=== PATIENT | male | born 1940 | race Caucasian/White ===

== ENCOUNTER 2017-09-28 17:52 | Emergency (ER) | payer OTHER ==
[~2017-09-28] VITALS: Ht 175.3 cm; Wt 95.3 kg
[~2017-09-28 17:52] MED LIST: ACIDOPHILUS1 EAC4 PO; ALUM-MAG HYDRO360 ML PO; AMITRIPTYLINE H25 M2 PO; ANASPAZ0.125 MG SL; APAP500 PO; ASA5UEC PO; ASPIRIN EC325 M1 PO; ATIVAN0.5 MG PO; B COMPLEX # 11 EACH PO; B-COMPLEX-VITA1 EACH PO; BENTYL 10 MG CA10 M1 PO; BENTYL 20 MG TA20 M1 PO; BP MEDS; CALCIUM 600 +1 EAC1 PO; CARAFATE 1 GM TA1 G1 PO; CIPRO500 MG PO; CLARITIN10 MG PO; COLACE100 MG PO; DILAUDID 2 MG TA2 MG PO; FISH OIL 1,001000 M2 PO; FISH OIL 1,2001 EAC4 PO; FLAGYL500 MG PO; GABAPENTIN 100100 MG PO; HYDROCODON-ACE1 EAC8 PO; HYDROCODON-ACE1 EACH PO; IRON PO; IRON325 PO; K-DUR 20 MEQ T20 MEQ PO; KEPPRA 500 MG500 M1 PO; KEPPRA750 MG PO; KLOR-CON 1010 MEQ PO; LAMICTAL100 MG PO; LEVOTHYROXIN0.025 MG PO; LEVOTHYROXINE0.05 MG PO; LIDODERM 5%1 PATC1 TRANSDERM; LISINOPRIL10 MG PO; LISINOPRIL5 MG PO; LOMOTIL TABLET1 EACH PO; LORAZEPAM 22 MG/1 ML IM; MAGNES; MAGNESIUM250 M1 PO; MAGOX 400400 MG PO; MEDROLDOSEPACK PO; MELATONIN3 MG PO; METOCLOPRAMIDE10 MG PO; MIDODRINE HCL 55 M1 PO; MILK OF MA2400 MG/10 PO; MIRALAX17 GM PO; MORPHINE SULFAT15 M3 PO; MS CONTIN15 MG PO; MUCINEX DM ER1 EACH PO; NEURONTIN 300300 M1 PO; NEXIUM40 MG PO; NORCO 5-325 TA1 EAC1 PO; NORFLEX100 MG PO; NORTRIPTYLINE H50 M3 PO; OMEGA-31000 M1 PO; ONDANSETRON HCL4 M2 PO; PAXIL10 MG PO; POTASSIUM20 PO; PREDNISONE 10 M10 M1 PO; PREDNISONE 10 M10 MG PO; PRILOSEC40 MG PO; PROAIR HFA8.5 GM INH; PROSCAR 5MG TABL5 MG PO; PROZAC20 MG PO; RENO; RENO CAPS SOFTGE1 MG PO; SIMVASTATIN40 MG PO; SKELAXIN 800 M800 M1 PO; SYNTHROID100 MCG PO; TAMIFLU75 MG PO; TESSALON PERLE100 MG PO; TRANSDERM-SCO1 PATC1 TRANSDERM; TRAZODONE HCL50 MG PO; TUMS PO; TYLENOL325 MG PO; TYLENOL325 MG RECTAL; UNICOMPLEX M TA1 TA1 PO; VALIUM5 MG PO; VITAMIN B-1100 M1 PO; VITAMIN C1000 M1 PO; VITAMIN D1000 UNI1 PO; VITAMIN D2000 UNIT PO; VITAMINC500 PO; XIFAXAN550 M1 PO; XIFAXAN550 MG PO; ZINC CHELATE50 MG PO; ZINC SULFATE 2220 M1 PO; ZINC50 M1 PO; ZOFRAN ODT4 MG PO; [UNRECOGNIZED DRUG - OTHER] PO
[2017-09-28 19:08] LABS: ABSOLUTE EOSINOPHILS 0.1 thou/uL (0.0-0.7); ABSOLUTE LYMPHOCYTES 2.4 thou/uL (0.8-5.3); ABSOLUTE MONOCYTES 0.5 thou/uL (0.0-1.2); ABSOLUTE NEUTROPHILS 2.7 thou/uL (1.6-8.1); BASOPHILS 0.3 %; EOSINOPHILS 1.7 %; HEMATOCRIT 43.7 % (42.0-52.0); LYMPHOCYTES 41.7 %; MCH 31.5 pg (26.0-34.0); MCHC 34.4 g/dL (28.0-37.0); MCV 91.6 fL (80.0-100.0); MONOCYTES 8.3 %; MPV 8.3 fl. (7.2-11.1); NUCLEATED RBCS 0 /100WBC; PLATELET COUNT* 183 thou/uL (150-400); RBC 4.78 mil/uL (4.50-6.00); WBC 5.7 thou/uL (4.0-11.0)
[2017-09-28 19:17] LABS: ANION GAP 10 mmol/L (7-16); BUN 12 mg/dL (7-18); CALCIUM 8.6 mg/dL (8.5-10.1); CHLORIDE 106 mmol/L (98-107); CO2 27 mmol/L (21-32); CREATININE 1.1 mg/dL (0.6-1.3); GLUCOSE 113 mg/dL (70-99); POTASSIUM 3.8 mmol/L (3.5-5.1); SODIUM 143 mmol/L (136-145)
[2017-09-28 19:24] LABS: ALBUMIN 3.6 g/dL (3.4-5.0); ALKALINE PHOSPHATASE 86 U/L (46-116); LIPASE 69 U/L (73-393); SGOT 24 U/L (15-37); SGPT 32 U/L (30-65); TOTAL BILIRUBIN 0.5 mg/dL (<0.1-1.0); TOTAL PROTEIN 7.8 g/dL (6.4-8.2); TROPONIN-I LEVEL <0.06 ng/mL (<0.06)
[2017-09-28 19:30] LABS: URINE BILIRUBIN NEGATIVE (Negative); URINE BLOOD TRACE (Negative); URINE CLARITY CLEAR; URINE COLOR YELLOW; URINE GLUCOSE-RANDOM NEGATIVE (Negative); URINE KETONES NEGATIVE (Negative); URINE LEUKOCYTES-REFLEX NEGATIVE (Negative); URINE NITRITE-REFLEX NEGATIVE (Negative); URINE PROTEIN NEGATIVE (Negative); URINE SPECIFIC GRAVITY 1.025 (1.005-1.030); URINE UROBILINOGEN 0.2 E.U./dl (0.2-1.0)
[2017-09-28 20:53] VITALS: BP 172/78
== END 2017-09-28 20:55 | disposition home or self-care (01) ==
LOC: M.ERS 17:52
PROVIDERS: Physician Assistant
DX: M25.551 Pain in right hip (principal); R10.31 Right lower quadrant pain; Z85.118 Personal history of other malignant neoplasm of bronchus and lung; Z88.5 Allergy status to narcotic agent; Z88.1 Allergy status to other antibiotic agents; Z88.2 Allergy status to sulfonamides; Z91.040 Latex allergy status; Z88.0 Allergy status to penicillin; Z88.8 Allergy status to other drugs, medicaments and biological substances; Z91.018 Allergy to other foods

== ENCOUNTER → 2017-10-10 | Outpatient (CLI) | payer OTHER ==
[~2017-10-10] MED LIST changes: +CENTRUM SILVER1 EAC2 PO; +ENOXAPARIN100 MG/11 SUBQ; +FLORASTOR250 MG PO; +LIDOCAINE1 EACH TRANSDERM; +PHENERGAN 25 MG25 M1 PO; +PROTONIX 20 MG20 M1 PO; +TRANSDERM-SCOP1 EACH TRANSDERM; +ZOFRAN ODT4 MG DISSOLVE
== END ==
LOC: M.MRI 15:39
DX: M16.11 Unilateral primary osteoarthritis, right hip (principal); M70.61 Trochanteric bursitis, right hip; Y93.89 Activity, other specified

== ENCOUNTER 2017-10-14 05:47 | Emergency (ER) | payer OTHER ==
[~2017-10-14] VITALS: Ht 175.3 cm; Wt 95.3 kg
[~2017-10-14 05:47] MED LIST changes: -CENTRUM SILVER1 EAC2 PO; -ENOXAPARIN100 MG/11 SUBQ; -FLORASTOR250 MG PO; -LIDOCAINE1 EACH TRANSDERM; -PHENERGAN 25 MG25 M1 PO; -PROTONIX 20 MG20 M1 PO; -TRANSDERM-SCOP1 EACH TRANSDERM; -ZOFRAN ODT4 MG DISSOLVE
[2017-10-14] MEDS ORDERED: CENTRUM SILVER1 EAC2 PO (06:03)
[2017-10-14] MEDS ORDERED: MAGOX 400400 MG PO (06:03)
[2017-10-14] MEDS ORDERED: PROTONIX 20 MG20 M1 PO (06:04)
[2017-10-14] MEDS ORDERED: LIDOCAINE1 EACH TRANSDERM (06:06)
[2017-10-14 06:11] LABS: ABSOLUTE EOSINOPHILS 0.1 thou/uL (0.0-0.7); ABSOLUTE LYMPHOCYTES 2.4 thou/uL (0.8-5.3); ABSOLUTE MONOCYTES 0.4 thou/uL (0.0-1.2); ABSOLUTE NEUTROPHILS 3.7 thou/uL (1.6-8.1); BASOPHILS 0.6 %; HEMATOCRIT 43.3 % (42.0-52.0); HEMOGLOBIN 14.9 gm/dL (14.0-18.0); LYMPHOCYTES 36.2 %; MCH 31.4 pg (26.0-34.0); MCHC 34.3 g/dL (28.0-37.0); MCV 91.5 fL (80.0-100.0); MONOCYTES 6.4 %; MPV 7.8 fl. (7.2-11.1); NUCLEATED RBCS 0 /100WBC; PLATELET COUNT* 169 thou/uL (150-400); POLYS 55.8 %; RBC 4.73 mil/uL (4.50-6.00); RDW-CV 13.8 % (10.5-14.5); WBC 6.6 thou/uL (4.0-11.0)
[2017-10-14 06:29] LABS: ANION GAP 8 mmol/L (7-16); BUN 13 mg/dL (7-18); CHLORIDE 107 mmol/L (98-107); CO2 30 mmol/L (21-32); CREATININE 1.1 mg/dL (0.6-1.3); GLUCOSE 145 mg/dL (70-99); POTASSIUM 3.7 mmol/L (3.5-5.1); SODIUM 145 mmol/L (136-145)
[2017-10-14 06:39] LABS: ALBUMIN 3.4 g/dL (3.4-5.0); ALKALINE PHOSPHATASE 77 U/L (46-116); LIPASE 89 U/L (73-393); MAGNESIUM 1.9 mg/dL (1.8-2.4); NT-PRO BRAIN NAT PEPTIDE 77 pg/mL (<300); SGOT 18 U/L (15-37); SGPT 23 U/L (30-65); TOTAL BILIRUBIN 0.6 mg/dL (<0.1-1.0); TOTAL PROTEIN 7.4 g/dL (6.4-8.2); TROPONIN-I LEVEL <0.06 ng/mL (<0.06)
[2017-10-14 09:23] VITALS: BP 126/76
--- NOTE | 2017-10-14 14:52 | EKG ---
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
== END 2017-10-14 09:24 | disposition home or self-care (01) ==
LOC: M.ERS 05:47
PROVIDERS: Emergency Medicine Emergency Medical Services
DX: R07.9 Chest pain, unspecified (principal); E11.9 Type 2 diabetes mellitus without complications; Z88.2 Allergy status to sulfonamides; Z88.1 Allergy status to other antibiotic agents; Z88.5 Allergy status to narcotic agent; Z88.8 Allergy status to other drugs, medicaments and biological substances

== ENCOUNTER 2018-01-14 08:48 | Inpatient (IN) | payer OTHER ==
[~2018-01-14] VITALS: Ht 172.7 cm; Wt 91.2 kg
[~2018-01-14 08:48] MED LIST changes: +CENTRUM SILVER1 EAC2 PO; +LIDOCAINE1 EACH TRANSDERM; +PROTONIX 20 MG20 M1 PO
[2018-01-14 08:57] VITALS: BP 137/68
[2018-01-14] MEDS ORDERED: ZOFRAN ODT4 MG DISSOLVE (09:11)
[2018-01-14] MEDS ORDERED: ENOXAPARIN100 MG/11 SUBQ (09:11)
[2018-01-14 09:15] LABS: ABSOLUTE LYMPHOCYTES 1.9 thou/uL (0.8-5.3); ABSOLUTE MONOCYTES 0.5 thou/uL (0.0-1.2); ABSOLUTE NEUTROPHILS 4.5 thou/uL (1.6-8.1); BASOPHILS 0.6 %; HEMATOCRIT 41.4 % (42.0-52.0); HEMOGLOBIN 14.2 gm/dL (14.0-18.0); LYMPHOCYTES 27.6 %; MCH 31.5 pg (26.0-34.0); MCHC 34.2 g/dL (28.0-37.0); MONOCYTES 6.7 %; MPV 8.1 fl. (7.2-11.1); NUCLEATED RBCS 0 /100WBC; PLATELET COUNT* 173 thou/uL (150-400); POLYS 65.1 %; RDW-CV 13.9 % (10.5-14.5); WBC 6.9 thou/uL (4.0-11.0)
[2018-01-14 09:25] LABS: ANION GAP 11 mmol/L (7-16); BUN 16 mg/dL (7-18); CHLORIDE 105 mmol/L (98-107); CO2 25 mmol/L (21-32); CREATININE 1.2 mg/dL (0.6-1.3); GLUCOSE 152 mg/dL (70-99); POTASSIUM 3.4 mmol/L (3.5-5.1); SODIUM 141 mmol/L (136-145)
[2018-01-14 09:27] LABS: INR 1.1; PROTIME 10.7 Seconds (9.20-11.50)
[2018-01-14 09:32] LABS: ALBUMIN 3.6 g/dL (3.4-5.0); ALKALINE PHOSPHATASE 81 U/L (46-116); LIPASE 61 U/L (73-393); SGOT 19 U/L (15-37); SGPT 28 U/L (30-65); TOTAL BILIRUBIN 0.6 mg/dL (<0.1-1.0); TOTAL PROTEIN 7.8 g/dL (6.4-8.2); TROPONIN-I LEVEL <0.06 ng/mL (<0.06)
[2018-01-14 11:07] VITALS: BP 124/70
[2018-01-14 13:00] VITALS: BP 148/85
--- NOTE | 2018-01-14 13:00 | NUR ---
ER ADMIT TO ROOM 314 VIA CART. ADMISSION ASSESSMENT COMPLETE, DEFER TO COMPUTER CHARTING. PATIENT REPORTING HAS BEEN HAVING NAUSEA AND LOOSE STOOLS AT HOME FOR LAST COUPLE OF DAYS UNABLE TO TAKE HOME MEDICATIONS. ALERT ORIENTED, BUT APPEARS TO BE FORGETFUL, SLIGHT CONFUSED AT TIMES. ORIENTED TO ROOM/CALL LIGHT AND PLAN OF CARE, VERBALIZED UNDERSTANDING. CALL LIGHT WITHIN REACH, WILL MONITOR.
[2018-01-14 15:24] VITALS: BP 127/72
--- NOTE | 2018-01-14 16:53 | EKG ---
[place] [address] ELECTROCARDIOGRAM REPORT Name: RIMMA WOLFE Room: [address] IN [facility]#: [id number] Admission: 01/14/18 Attend Phys: Gopi Mark MD Discharge: Date of : 44 Report #: [id number] THIS REPORT FOR: //name// 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[place] : 1940 Requested By: Joe Isaac Order Number: [id number] MD: Melvin Santizo Measurements Intervals [place] Rate: 70 P: 49 [place]: 195 QRS: 55 QRSD: 110 T: 72 QT: 512 QTc: 553 Interpretive Statements Sinus rhythm Nonspecific T-wave flattening Compared to ECG 10/14/2017 05:54:11 No significant changes noted Electronically Signed On 01-14-2018 16:53:09 CDT by Melvin Santizo [email or web address] <ELECTRONICALLY SIGNED> By: Melvin Santizo MD, [facility] 01/14/18 1653 4 4 Melvin Santizo MD, [facility] /EPI
--- NOTE | 2018-01-14 17:47 | NUR ---
PATIENT RESTING IN BED WITH HOB ELEVATED, IV INFUSING. NO COMPLAINTS OF NAUSEA OR DISCOMFORT AT THIS TIME. GIVEN PO ANTI NAUSEA MED EARLIER, TOLERATING CLEAR LIQUID DIET. PATIENT HAD 1 LOOSE STOOL AT ADMISSION NO FURTHER STOOLS AT THIS TIME. CALL LIGHT WITHIN REACH, WILL CONTINUE WITH PLAN OF CARE.
[2018-01-15 01:04] VITALS: BP 114/58
[2018-01-15 04:44] LABS: HEMATOCRIT 39.2 % (42.0-52.0); HEMOGLOBIN 13.3 gm/dL (14.0-18.0); MCH 31.6 pg (26.0-34.0); MPV 8.8 fl. (7.2-11.1); RBC 4.21 mil/uL (4.50-6.00); WBC 5.9 thou/uL (4.0-11.0)
[2018-01-15 04:48] LABS: CALCIUM 8.6 mg/dL (8.5-10.1); MAGNESIUM 2.2 mg/dL (1.8-2.4); POTASSIUM 3.8 mmol/L (3.5-5.1)
--- NOTE | 2018-01-15 06:27 | NUR ---
PT SLEPT ON AND OFF OVERNIGHT. USING URINAL TO VOID. UP TO BR WITH SBA AND WALKER TO BR AND HAD SMALL LOOSE BROWN AND YELLOW BM-SPECIMEN SENT TO LAB. PO NAUSEA MED GIVEN FOR CO SLIGHT NAUSEA WITHOUT EMESIS, GOOD RESULT. TOLERATING GOOD AMOUNTS OF CLEAR LIQUIDS WITHOUT EMESIS. RAC IVF INFUSING PER PUMP, SECOND BAG OF D5NS INFUSING TO BE FOLLOWED BY NS INFUSION ONCE COMPLETED. AM LABS DRAWN. PO VANC GIVEN WITH APPLE JUICE ORDERED. LOVENOX GIVEN AT HS. REMAINS ON SP [facility] ABLE TO USE CALL LITE AND MAKE NEEDS KNOWN.
[2018-01-15 08:00] VITALS: BP 144/68
--- NOTE | 2018-01-15 11:20 | NUR ---
SW met with pt to complete initial assessment, introduce self, and SW role. Pt alert, oriented, pleasant. Pt lives at home with his , fairly independently. Pt has a rolling walker. Pt has hx of HH services through [facility] . Pt does not anticipate any dc needs at this time. SW to continue to follow to assist with safe dc planning.
[2018-01-15 15:52] VITALS: BP 140/71
--- NOTE | 2018-01-15 18:54 | NUR ---
ASSUMED CARE THIS AM. A/O, UP AD IMELDA WITH WALKER, MATTHIAS MEDS AND CARES WITHOUT INCIDENT, CALL LIGHT IN REACH, CONT POC.
[2018-01-15 23:49] VITALS: BP 128/73
--- NOTE | 2018-01-16 05:42 | NUR ---
PATIENT SLEPT PART OF THE NIGHT. PATIENT WAS GIVEN PAIN MEDICINE TWICE FOR A HEADACHE WITH GOOD RELIEF. PATIENT STILL COMPLAINING OF DIARRHEA. CDIFF DID COME BACK NEGATIVE ON LAB RESULTS. WILL CONTINUE TO MONITOR.
[2018-01-16 08:00] VITALS: BP 122/76
[2018-01-16 15:52] VITALS: BP 136/78
--- NOTE | 2018-01-16 19:08 | NUR ---
MATTHIAS PO CREAM OF WHEAT, NAUSEA MANAGED WELL WITH IM ZOFRAN, DENIES PAIN, COMPLIANT WITH MEDS AND CARES, UP AD IMELDA WITH WALKER, REPORTS CONT LOOSE STOOL, LESS IN FREQUENCY, CALL LIGHT IN REACH, CONT POC.
[2018-01-16 21:00] VITALS: BP 136/64
--- NOTE | 2018-01-17 05:16 | NUR ---
PATIENT HAS REMAINED ALERT AND ORIENTED X 4 THROUGHOUT THE SHIFT AND RESTING QUIETLY ON HOURLY ROUNDS. HAS DENIED NAUSEA. NO BM'S TONIGHT. VOIDING ADEQUATELY PER URINAL. MEDS PER ORDERS. VITAL SIGNS STABLE. CONTINUE TO MONITOR.
[2018-01-17 07:57] VITALS: BP 107/67
[2018-01-17] MEDS ORDERED: PHENERGAN 25 MG25 M1 PO (09:22)
[2018-01-17] MEDS ORDERED: BENTYL 10 MG CA10 M1 PO ×2 (09:22→10:53)
[2018-01-17] MEDS ORDERED: TRANSDERM-SCOP1 EACH TRANSDERM (09:22)
[2018-01-17] MEDS ORDERED: ONDANSETRON HCL4 M2 PO (09:22)
[2018-01-17] MEDS ORDERED: FLAGYL500 MG PO (09:22)
--- NOTE | 2018-01-17 09:54 | NUR ---
ASSUMED CARE OF PT THIS AM AROUND 0715- UPON ASSESSMENT PT NOTED TO BE RESTING IN BED, WATCHING TV- PT A&O X4- CONTINENT OF BOWEL AND BLADDER- SBA WITH RW FOR TRANSFERS- LCTA, RESP EVEN AND UN-LABORED- VSS, O2 SAT 95% ON RA- ABDOMEN SOFT/ROUND/TENDER, BS X4 QUADS-LAST BM REPORTED 01/16/18- NO IV ACCESS NOTED, PHYSICAIN AWARE, WITH ALL MEDICATIONS CHANGED TO PO- FAIR PO INTAKE NOTED THIS AM WITH BREAKFAST- +1 BLE EDEMA NOTED, LEG ELEVATION ENCOURAGED- PT RATES PAIN 10/29 TO ABD, REPOSITIONING/RELAXATION TECHNIQUES IN PLACE- CALL LIGHT AND PERSONAL BELONGINGS WITH IN REACH- HOURL ROUNDS IN PLACE R/T SAFETY/NEEDS- ALL NEEDS MET AT THIS TIME-WCTM
[2018-01-17] MEDS ORDERED: FLORASTOR250 MG PO (11:22)
[2018-01-17 11:24] VITALS: BP 107/67
--- NOTE | 2018-01-17 14:06 | NUR ---
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
--- NOTE | 2018-01-18 14:07 | CON ---
[facility] [address] [place] [address] CONSULTATION Name: RIMMA WOLFE Room: [address] IN .R.#: [id number] Admission: 01/14/18 Attend Phys: Gopi Mark MD Discharge: 01/17/18 Date of : 44 Report #: [id number] THIS REPORT FOR: //name// CC: Gopi Barajas MD DICTATED BY: Mary Ann Beckman [facility] DATE OF SERVICE: 01/14/2018 Please note at the time of this dictation, the patient was seen and physically examined by myself. REASON FOR CONSULTATION: Abdominal pain, nausea, vomiting and diarrhea. HISTORY OF PRESENT ILLNESS: This is a 77-year-old male who presented to the Emergency Room after having 2 days of worsening of his diarrhea along with experiencing some vomiting with any time he had been eating. He states over the last 2 days, he has had no appetite. He has noted the nausea and vomiting. Denied any bright red blood or any melena and he was having some chilling. The patient was last seen in our office on 11/18. He saw Karen, the other nurse practitioner, for these exact same symptoms. He was given a GI pathology kit, which came back totally negative and he was therefore treated with Xifaxan for small intestinal bacterial overgrowth. He states he completed that and he was doing fine without any problems until just 2 days ago. The patient states that he lives at home with his at the present time. Last EGD and colonoscopy were done in 07/2016. EGD showed a Billroth 1 and of bile acid gastritis and colon was completely normal. ALLERGIES: INCLUDE TRAMADOL, RANITIDINE, COMPAZINE, THEOPHYLLINE, SULFA, PINEAPPLE, PHENOBARBITAL, OXYCODONE, NSAIDS, NAPROXEN, LEVOFLOXACIN, LATEX, IBUPROFEN, HYDROCODONE, ERYTHROMYCIN, CYCLOBENZAPRINE, CODEINE, CLINDAMYCIN, CEFACLOR, CAFFEINE, ALPRAZOLAM AND MILK CONTAINING PRODUCTS. MEDICATIONS FROM HOME: Include multivitamin, Mag-Ox, Protonix, Zofran, Lovenox, Zocor, Proscar, vitamin C, Neurontin, Tums, B complex, fish oil, Carafate, ProAir, Synthroid, potassium chloride, Keppra, iron, vitamin D, and Dilaudid. PAST MEDICAL HISTORY: Significant for type 2 diabetes, history of a blood clot, seizures, hypothyroidism, BPH. PAST SURGICAL HISTORY: Hernia repair, partial lung partially removed secondary to lung cancer, carpal tunnel, cholecystectomy, appendectomy [place] [address] CONSULTATION Name: RIMMA WOLFE Room: [address]#: [id number] Admission: 01/14/18 Attend Phys: Gopi Mark MD Discharge: 01/17/18 Date of : 44 Report #: [id number] FAMILY HISTORY: Noncontributory. SOCIAL HISTORY: Lives with his . Denies any alcohol, tobacco or illegal drug use. REVIEW OF SYSTEMS: Twelve-point review of systems is essentially negative except what is mentioned in the HPI. PHYSICAL EXAMINATION: VITAL SIGNS: Temperature 36.6, pulse 76, respirations 16, blood pressure 124/70. HEART: Regular rate and rhythm. LUNGS: Diminished, but clear. ABDOMEN: Soft, positive bowel sounds in all 4 quadrants with some generalized tenderness noted to palpation. LABORATORY DATA: Hemoglobin 14.2, hematocrit 41.1, white count is 6.9, platelets 173. PT 10.7, INR 1.1. Sodium 141, potassium 3.4, chloride 105, CO2 of 25, BUN is 16, creatinine 1.2, GFR is 59 and glucose is 152. CT of the abdomen and pelvis shows scattered colonic diverticulosis, otherwise negative. C. diff is pending. IMPRESSION: 1. Diarrhea. Gastrointestinal path was negative in November. 2. Abdominal pain. 3. Nausea, vomiting. 4. Recurrent small bowel bacterial overgrowth, recent treatment in November. PLAN: 1. We will await C. diff while here. 2. Likely, the patient will need retreatment with Xifaxan given his numerous other allergies to antibiotics. 3. The patient to then start a probiotic once he has completed that. 4. Further recommendations to be made once Dr. Johnson sees the patient later today. Thank you for allowing us to participate in this patient's care. Please do not hesitate to call with any questions in regard to this consult. <ELECTRONICALLY SIGNED> By: Rolando Johnson DO 01/18/18 1407 1535 [id number] Johnson DO /nt
--- NOTE | 2018-01-20 16:57 | CON ---
[address] [address] CONSULTATION Name: RIMMA WOLFE Room: [address] IN M.R.#: [id number] Admission: 01/14/18 Attend Phys: Gopi Mark MD Discharge: 01/17/18 Date of : 44 Report #: [id number] THIS REPORT FOR: //name// CC: Gopi Barajas MD DATE OF SERVICE: 01/14/2018 REFERRING PHYSICIAN: Gopi Mark MD ADDENDUM I have seen and examined the patient and agreed with plans that have been outlined by our nurse practitioner, Mary Ann Beckman. We will hold off on any endoscopic studies at this point in time and await the stool studies for C. diff. My partner, Dr. Clemons, will see the patient again tomorrow and make further recommendations regarding his care. <ELECTRONICALLY SIGNED> By: Rolando Johnson DO 01/20/18 1657 1051 1605Rolando Johnson DO /nt
== END 2018-01-17 14:09 | disposition home or self-care (01) | DRG 372 ==
LOC: M.ERS 08:48 → M.TBA-ER 10:21 → M.3W 10:21
PROVIDERS: Family Medicine; ADMIT Internal Medicine
DX: A04.9 Bacterial intestinal infection, unspecified (principal); D68.59 Other primary thrombophilia; G43.909 Migraine, unspecified, not intractable, without status migrainosus; F11.90 Opioid use, unspecified, uncomplicated; E11.9 Type 2 diabetes mellitus without complications; E86.0 Dehydration; Z88.4 Allergy status to anesthetic agent; Z88.1 Allergy status to other antibiotic agents; Z91.040 Latex allergy status; Z88.2 Allergy status to sulfonamides; Z88.8 Allergy status to other drugs, medicaments and biological substances; Z91.018 Allergy to other foods; Z79.899 Other long term (current) drug therapy; Z87.11 Personal history of peptic ulcer disease; Z90.89 Acquired absence of other organs; Z87.891 Personal history of nicotine dependence; Z90.49 Acquired absence of other specified parts of digestive tract; Z85.118 Personal history of other malignant neoplasm of bronchus and lung; Z91.011 Allergy to milk products

== ENCOUNTER 2018-09-28 17:31 | Inpatient (IN) | payer OTHER ==
[~2018-09-28] VITALS: Ht 177.8 cm; Wt 88.0 kg
[~2018-09-28 17:31] MED LIST changes: +ENOXAPARIN100 MG/11 SUBQ; +FLORASTOR250 MG PO; +PHENERGAN 25 MG25 M1 PO; +TRANSDERM-SCOP1 EACH TRANSDERM; +ZOFRAN ODT4 MG DISSOLVE
[2018-09-28 17:36] VITALS: BP 142/82
[2018-09-28] MEDS ORDERED: LASIX 40 MG TAB40 M2 PO (17:48)
[2018-09-28 18:23] LABS: ABSOLUTE LYMPHOCYTES 2.3 thou/uL (0.8-5.3); ABSOLUTE MONOCYTES 0.4 thou/uL (0.0-1.2); ABSOLUTE NEUTROPHILS 3.2 thou/uL (1.6-8.1); BASOPHILS 0.7 %; EOSINOPHILS 0.8 %; HEMOGLOBIN 13.9 gm/dL (14.0-18.0); LYMPHOCYTES 38.5 %; MCH 30.8 pg (26.0-34.0); MCHC 33.8 g/dL (28.0-37.0); MCV 90.9 fL (80.0-100.0); MPV 8.3 fl. (7.2-11.1); NUCLEATED RBCS 0 /100WBC; PLATELET COUNT* 186 thou/uL (150-400); RBC 4.51 mil/uL (4.50-6.00); RDW-CV 14.2 % (10.5-14.5)
[2018-09-28 18:48] LABS: PROTIME 10.4 Seconds (9.20-11.50)
[2018-09-28 18:54] LABS: ALBUMIN 3.5 g/dL (3.4-5.0); ALKALINE PHOSPHATASE 84 U/L (46-116); ANION GAP 9 mmol/L (7-16); BUN 14 mg/dL (7-18); CALCIUM 8.8 mg/dL (8.5-10.1); CHLORIDE 105 mmol/L (98-107); CO2 28 mmol/L (21-32); GLUCOSE 116 mg/dL (70-99); POTASSIUM 3.7 mmol/L (3.5-5.1); SGOT 21 U/L (15-37); SGPT 23 U/L (30-65); SODIUM 142 mmol/L (136-145); TOTAL BILIRUBIN 0.6 mg/dL (<0.1-1.0); TOTAL PROTEIN 7.6 g/dL (6.4-8.2); TROPONIN-I LEVEL <0.06 ng/mL (<0.06)
[2018-09-28 21:14] LABS: URINE BILIRUBIN NEGATIVE (Negative); URINE BLOOD TRACE (Negative); URINE CLARITY CLEAR; URINE COLOR YELLOW; URINE GLUCOSE-RANDOM NEGATIVE (Negative); URINE KETONES TRACE (Negative); URINE LEUKOCYTES-REFLEX NEGATIVE (Negative); URINE NITRITE-REFLEX NEGATIVE (Negative); URINE PROTEIN NEGATIVE (Negative); URINE UROBILINOGEN 0.2 E.U./dl (0.2-1.0)
[2018-09-28 22:15] VITALS: BP 134/65
[2018-09-28 23:00] VITALS: BP 130/67
[2018-09-28] MEDS ORDERED: ZINC50 MG PO (23:18)
[2018-09-28] MEDS ORDERED: ASPIR 8181 MG PO (23:19)
[2018-09-28] MEDS ORDERED: ZANAFLEX4 MG PO (23:21)
[2018-09-29 04:00] VITALS: BP 103/56
[2018-09-29 08:00] VITALS: BP 126/68
--- NOTE | 2018-09-29 09:12 | EKG ---
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
[2018-09-29 12:14] VITALS: BP 134/65
[2018-09-29 12:19] LABS: ALBUMIN 3.1 g/dL (3.4-5.0); CALCIUM 8.2 mg/dL (8.5-10.1); CREATININE 1.2 mg/dL (0.6-1.3); POTASSIUM 3.6 mmol/L (3.5-5.1); TOTAL BILIRUBIN 0.6 mg/dL (<0.1-1.0)
[2018-09-29 16:48] VITALS: BP 112/63
[2018-09-29 20:00] VITALS: BP 137/78
[2018-09-30 00:27] VITALS: BP 120/62
[2018-09-30 02:08] LABS: GLYCOHEMOGLOBIN (HGB A1C) 6.5 % (4.8-5.6)
[2018-09-30 04:00] VITALS: BP 100/52
[2018-09-30 05:48] LABS: CHOLESTEROL 112 mg/dL (<200); HDL CHOLESTEROL 37 mg/dL (>40); LDL CHOLESTEROL 53 mg/dL (<100); TRIGLYCERIDE 114 mg/dL (<150); VLDL 23 mg/dL (<40)
[2018-09-30 05:54] LABS: SERUM ASSESSMENT Clear
[2018-09-30 08:00] VITALS: BP 117/70
[2018-09-30 12:13] VITALS: BP 117/70
--- NOTE | 2018-10-03 10:16 | CON ---
[facility] [address] [place] [address] CONSULTATION Name: RIMMA WOLFE Room: [address] IN .R.#: [id number] Admission: 09/28/18 Attend Phys: Briana Briscoe MD Discharge: 09/30/18 Date of : 44 Report #: [id number] THIS REPORT FOR: //name// CC: Dilma Briscoe DATE OF SERVICE: 09/29/2018 HISTORY OF PRESENT ILLNESS: This is a 77-year-old male patient who was seen by me. I reviewed his old records and I have seen this patient in the past also. This patient has a question of seizures, but we were not sure whether they are all true seizures or pseudoseizures. Presently, he is on Keppra and gabapentin. His problems are exclusively in the right shoulder. He indicated that he had surgery there. Then, he fell on that and now, it is too painful to move. When I tried to move, then he again says it is very painful to move. He can move his hand, but he cannot move his shoulder. REVIEW OF SYSTEMS: Indicate that this patient has always been a reluctant historian. His history has never been clear. I reviewed the records and got more history from the record than from the patient. He does not believe seizures is of an issue. 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 He said he had a stroke in July and he was in [facility]. I do not have any record from there and we will try to get that. I carried out the 14-point review of systems on him and the most, as was a pretty vague except about the right shoulder and is pretty definite that it is very painful, that is why he cannot move it. Also from the record indicates he has chronic opiate problems, partial gastrectomy and migraine, knee surgeries, recent CVA. PAST MEDICAL HISTORY: Positive for seizures. FAMILY HISTORY: Negative for any early age stroke. SOCIAL HISTORY: Indicates that he used to smoke. PHYSICAL EXAMINATION: Indicates he is alert. He is responsive. He can follow simple commands. He is complaining of a lot of pain in the right shoulder. Cranial nerve examinations appear unremarkable, and his biggest problem is the right shoulder, he will move it, he will not let me move it. There is no problem in the lower extremities. There is no facial nerve problem. I could not look at the fundus. Cardiac and respiratory examination is unremarkable. Blood pressure is 126/68, respirations 18, pulse is 66, temperature is 98. LABORATORY DATA: Indicate a white count of 6.0. CT angio was reviewed and was mostly unremarkable [place] a [place] [address] CONSULTATION Name: RIMMA WOLFE Room: [address] IN [facility]#: [id number] Admission: 09/28/18 Attend Phys: Briana Briscoe MD Discharge: 09/30/18 Date of : 44 Report #: [id number] IMPRESSION: 1. His present problem appears to be secondary to focal shoulder pathology and we will see what orthopedics says. 2. He has asymptomatic basilar artery aneurysms and he needs to go to one of the neurointerventionalists probably at or a neurosurgeon at to further evaluate that. 3. He needs to follow up with his own neurologist after the dismissal and presently, his problem appears to be from the shoulder. We will see what the orthopedics finds. Thank you very much for this referral. <ELECTRONICALLY SIGNED> By: Nacho Carlton MD 10/03/18 [phone] [id number] Carlton MD /nt
== END 2018-09-30 13:10 | disposition home or self-care (01) | DRG 554 ==
LOC: M.ERS 17:31 → M.2W 20:33 → M.TBA-ER 20:33 → M.2W 22:20
PROVIDERS: Emergency Medicine Emergency Medical Services; Internal Medicine; Personal Emergency Response Attendant; ADMIT Internal Medicine
DX: M19.011 Primary osteoarthritis, right shoulder (principal); G43.909 Migraine, unspecified, not intractable, without status migrainosus; E11.9 Type 2 diabetes mellitus without complications; Z86.73 Personal history of transient ischemic attack (TIA), and cerebral infarction without residual deficits; Z85.118 Personal history of other malignant neoplasm of bronchus and lung; Z86.711 Personal history of pulmonary embolism; Z90.2 Acquired absence of lung [part of]; Z90.3 Acquired absence of stomach [part of]; Z86.718 Personal history of other venous thrombosis and embolism; Z87.11 Personal history of peptic ulcer disease; Z90.49 Acquired absence of other specified parts of digestive tract; Z79.82 Long term (current) use of aspirin; Z79.899 Other long term (current) drug therapy; Z88.1 Allergy status to other antibiotic agents; Z91.040 Latex allergy status; Z91.011 Allergy to milk products; Z88.5 Allergy status to narcotic agent; Z88.2 Allergy status to sulfonamides; Z88.8 Allergy status to other drugs, medicaments and biological substances; Z91.018 Allergy to other foods